=== PATIENT | female | born 1995 | race African-American/Black ===

== ENCOUNTER 2016-12-04 17:03 | Emergency (ER) | payer BC, OTHER | END 2016-12-04 18:17 | disposition home or self-care (01) | LOC: ER 17:03 | DX: J06.9 Acute upper respiratory infection, unspecified (principal); J45.909 Unspecified asthma, uncomplicated; Z88.0 Allergy status to penicillin; Z88.1 Allergy status to other antibiotic agents | CPT/HCPCS: 94640; 96372; 99283 ==